=== PATIENT | male | born 1975 | race Two or more races ===

== ENCOUNTER 2024-09-13 03:18 | Emergency (ER) | payer OTHER ==
[~2024-09-13] VITALS: Ht 185.4 cm; Wt 124.7 kg
--- NOTE | 2024-09-13 04:10 | ED.PDOC ---
History of Present Illness HPI Comments 49 y/o M, with a Hx of morbid obesity and marijuana use, presents with c/o urinary retention and suprapubic abdominal pain, today. Patient endorses on being unable to urinate since 1900, yesterday, with associated pain to his lower abdomen and full bladder sensation. He reports no recent injuries, sexual act ivities, or other relevant or pertinent information. Patient denies having any testicular pain, nausea, vomiting, fever, chills, or other associated symptoms or modifiers at this time. Time Seen by MD: 03:40 Reviewed Notes: Nurses Notes, Medications, Allergies Allergies: Coded Allergies: NO KNOWN ALLERGIES (Unverified , 09/13/24) Information Source: Patient Mode of Arrival: Ambulatory Severity: Moderate Timing: Hours Duration: Since onset Prehospital treatment: None Past Medical History Past Medical History (Other): morbid obesity, PTSD Surgical History: Denies all surgeries Family History Family History: Unknown Social History Smoker: Non-Smoker Alcohol: Denies ETOH Use Drugs: Marijuana Lives In: Home Gastrointestinal: reports: abdominal pain (suprapubic tenderness) Genitourinary: reports: others (urinary retention ) All Other Systems: Reviewed and Negative (negative unless otherwise stated above or in HPI) Physical Exam General Appearance: No Apparent Distress, Obese HEENT: Normal ENT Inspection, Pharynx Normal, TMs Normal Neck: Full Range of Motion, Non-Tender, Normal, Normal Inspection Respiratory: Chest Non-Tender, Lungs Clear, No Accessory Muscle Use, No Respiratory Distress, Normal Breath Sounds Cardiovascular: No Edema, No JVD, No Murmur, No Gallop, Normal Peripheral Pulses, Regular Rate/Rhythm Breast Exam: Deferred Gastrointestinal: No Organomegaly, No Pulsatile Mass, Normal Bowel Sounds, Soft, Suprapubic, Tenderness (suprapubic tenderness) Genitalia: Deferred Pelvic: Deferred Rectal: Deferred Extremities: No calf tenderness, Normal capillary refill, Normal inspection, Normal range of motion, Non-tender, No pedal edema Musculoskeletal : Apperance: Normal Neurologic: Alert, 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 Was a procedure done?: No Differential Dx Considerations may include: ureteral obstruction, BPH, UTI, cystolithiasis, bladder stones, urolithiasis, phimosis, paraphimosis, foreign bodies X-Ray, Labs, Meds, VS Vital Signs Date Time Temp Pulse Resp B/P (MAP) Pulse Ox O2 Delivery O2 Flow Rate FiO2 09/13/24 04:22 94 18 159/81 09/13/24 03:35 97.7 94 16 159/81 (107) 94 Lab Test 09/13/24 05:12 Range/Units White Blood Count 12.9 H 4.4-10.8 10^3/uL Red Blood Count 4.36 L 4.5-5.90 10^6/uL Hemoglobin 14.4 13.5-17.5 g/dL Hematocrit 41.6 41.0-53.0 % Mean Corpuscular Volume 95.6 80.0-100.0 fL Mean Corpuscular Hemoglobin 33.0 H 28.0-32.0 pg Mean Corpuscular Hemoglobin Concent 34.5 32.0-36.0 g/dL Red Cell Distribution Width 13.0 11.8-14.3 % Platelet Count 226 140-450 10^3/uL Mean Platelet Volume 8.0 6.9-10.8 fL Neutrophils (%) (Auto) 77.6 37.0-80.0 % Lymphocytes (%) (Auto) 15.6 10.0-50.0 % Monocytes (%) (Auto) 6.2 0.0-12.0 % Eosinophils (%) (Auto) 0.3 0.0-7.0 % Basophils (%) (Auto) 0.3 0.0-2.0 % Neutrophils # (Auto) 10.0 H 1.6-8.6 10 ^3/uL Lymphocytes # (Auto) 2.0 0.4-5.4 10 ^3/uL Monocytes # (Auto) 0.8 0-1.3 10 ^3/uL Eosinophils # (Auto) 0 0-0.8 10 ^3/uL Basophils # (Auto) 0 0-0.2 10 ^3/uL Nucleated Red Blood Cells 0.0 % Sodium Level 134 L 136-145 mmol/L Potassium Level 4.2 3.5-5.1 mmol/L Chloride Level 106 98-107 mmol/L Carbon Dioxide Level 22 20-31 mmol/L Anion Gap 6 5-15 Blood Urea Nitrogen 15 9-23 mg/dL Creatinine 0.96 0.700-1.30 mg/dL Glomerular Filtration Rate Calc 98 >90 mL/min BUN/Creatinine Ratio 15.6 10.0-20.0 Serum Glucose 116 H 74-106 mg/dL Calcium Level 10.1 8.7-10.4 mg/dL Current Medications Medications (Trade) Dose Ordered Sig/Bertha Route Start Time Stop Time Status Last Admin Morphine Sulfate 4 mg ONCE ONCE IV 09/13/24 04:15 09/13/24 04:16 DC 09/13/24 04:22 Ondansetron HCl (Zofran) 4 mg ONCE ONCE IV 09/13/24 04:15 09/13/24 04:16 DC 09/13/24 04:21 Lidocaine HCl (Glydo) 11 ml ONCE ONCE UR 09/13/24 04:15 09/13/24 04:16 DC 09/13/24 04:27 Time of 1ST Reevaluation: 05:56 Reevaluation 1ST: Resolved Patient Education/Counseling: Diagnosis, Treatment Family Education/Counseling: No Family Present Departure 1 Departure Time of Disposition: 05:55 (Patient was able to urinate and his symptoms relived. Will discharge home with outpatient urology followup.) Impression: Primary Impression: Acute urinary retention Disposition: 01 HOME / SELF CARE / HOMELESS Condition: Stable Referrals: BRADY HERNANDEZ MD Discharged With: Self Critical Care Note Critical Care Time?: No Stability Stability form required: No Heart Score Heart Score: Heart Score Response (Comments) Value History N/A 0 EKG N/A 0 Age N/A 0 Risk Factors N/A 0 Troponin N/A 0 Total 0 I personally scribed for GOVIND MAI MD ([email or web address]) on 09/13/24 at 04:10. Electronically submitted by Derian Bob [email or web address]). GOVIND MAI MD Sep 13, 2024 04:10
[2024-09-13] MEDS: ONDANSETRON HCL 4 MG/2 ML VIAL IV ONE (04:21)
[2024-09-13] MEDS: MORPHINE SULFATE 4 MG/ML SYR/VIAL IV ONE (04:22)
[2024-09-13] MEDS: LIDOCAINE 2% JELLY 11ml (GLYDO) UR ONE (04:27)
[2024-09-13 05:28] LABS: Basophils # (auto) 0 10 ^3/uL (0-0.2); Basophils % (auto) 0.3 % (0.0-2.0); Eosinophils # (auto) 0 10 ^3/uL (0-0.8); Eosinophils % (auto) 0.3 % (0.0-7.0); Hematocrit 41.6 % (41.0-53.0); Hemoglobin 14.4 g/dL (13.5-17.5); Lymphocytes % (auto) 15.6 % (10.0-50.0); Mean Corpuscular Hgb Conc. 34.5 g/dL (32.0-36.0); Mean Corpuscular Volume 95.6 fL (80.0-100.0); Monocytes # (auto) 0.8 10 ^3/uL (0-1.3); Monocytes % (auto) 6.2 % (0.0-12.0); Neutrophils % (auto) 77.6 % (37.0-80.0); Platelet Count (auto) 226 10^3/uL (140-450); Red Blood Cells 4.36 10^6/uL (4.5-5.90); White Blood Cell 12.9 10^3/uL (4.4-10.8)
[2024-09-13 05:39] LABS: Chloride 106 mmol/L (98-107); Potassium 4.2 mmol/L (3.5-5.1)
[2024-09-13 05:40] LABS: Anion Gap 6 (5-15); Carbon Dioxide 22 mmol/L (20-31)
[2024-09-13 05:41] LABS: Calcium 10.1 mg/dL (8.7-10.4)
[2024-09-13 05:45] LABS: BUN/Creatinine Ratio 15.6 (10.0-20.0); Blood Urea Nitrogen 15 mg/dL (9-23)
[2024-09-13 05:48] LABS: Glucose 116 mg/dL (74-106); Sodium 134 mmol/L (136-145)
[2024-09-13 06:30] VITALS: PULSE 88; RESP 18; TEMP 98.1; O2SAT 98
[2024-09-13 06:55] VITALS: BP 142/82; PULSE 76; RESP 19
== END 2024-09-13 07:15 | disposition home or self-care (01) ==
LOC: ER 03:18
DX: R33.9 Retention of urine, unspecified (principal)
CPT/HCPCS: 36415; 80048; 85025; 96374; 96375; 99284; J2270; J2405